=== PATIENT | female | born 1980 | race Caucasian/White ===

== ENCOUNTER 2019-05-05 14:34 | Emergency (ER) | payer OTHER, SELFPAY ==
[2019-05-05 14:41] VITALS: BP 150/83; PULSE 120; RESP 20; TEMP 37.2; O2SAT 100
--- NOTE | 2019-05-05 14:54 | ED.URI ---
HPI - URI/Sore Throat General Chief Complaint: Upper Respiratory Infection Stated Complaint: cough/fever Time Seen by Provider: 05/05/19 14:54 Source: patient and RN notes reviewed History of Present Illness HPI Narrative: Patient is a 38-year-old female that presents the urgent care with complaints of cough and fever. Patient states that her fever started yesterday and this is since subsided after 1 dose of Tylenol. Patient states the cough has been clear and productive for the last 2 days. Patient is used Tylenol and Airborne [id number]. No other acute complaints. No acute distress noted. Patient aware of the plan of care. Related Data Allergies Allergy/AdvReac Type Severity Reaction Status Date / Time No Known Allergies Allergy Verified 05/05/19 14:49 Review of Systems Review of Systems: Narrative: CONSTITUTIONAL: Reports a fever EYES: Denies visual changes, redness, or discharge. ENT: Denies rhinorrhea, congestion, sore throat, or otalgia. CARDIOVASCULAR: Denies chest pain, palpitations, or edema. RESPIRATORY: Reports of a clear productive cough with out dyspnea GASTROINTESTINAL: Denies abdominal pain, nausea, vomiting, or diarrhea. GENITOURINARY: Denies dysuria or hematuria. SKIN: Denies rash or itching. MUSCULOSKELETAL: Denies back pain, joint pain, or myalgia. NEUROLOGIC: Denies headache, numbness, or weakness. PMFSH Comments At the time of my signature, I reviewed and agree with the nursing past medical, surgical, social, and family history. There is no relevant family history pertinent to the patient complaint. Exam Narrative: Exam Narrative: GENERAL: This is a well-nourished, well-developed patient, in no apparent distress. HEAD: normocephalic, atraumatic. EYES: PERRL. Sclera clear/white. Vision is grossly intact. EARS: External ears normal, auditory canals clear and without drainage, TMs normal without perforation. Hearing grossly intact. NOSE: External nose normal with no obvious nasal discharge, nares without redness, no rhinorrhea. THROAT: Mucous membranes moist, posterior pharynx clear. NECK: Neck supple, non-tender without lymphadenopathy, masses or thyromegaly. CARDIOVASCULAR: Tachycardic without murmurs, gallops, or rubs. RESPIRATORY: Clear to auscultation. Breath sounds equal bilaterally. No wheezes, rales, or rhonchi. SKIN: warm, intact with no suspicious lesions or rash, good texture and turgor. NEURO: awake, alert, and oriented to person, place and time. There were no obvious focal neurologic abnormalities. EXTREMITIES: No clubbing, cyanosis, or edema. Course Vital Signs Vital signs: Vital Signs Temperature 99 F 05/05/19 14:41 Pulse Rate 120 H 05/05/19 14:41 Respiratory Rate 05/05/19 14:41 Blood Pressure 150/83 H 05/05/19 14:41 Pulse Oximetry 100 05/05/19 14:41 Temperature 99 F 05/05/19 14:41 Pulse Rate 120 H 05/05/19 14:41 Respiratory Rate 05/05/19 14:41 Blood Pressure 150/83 H 05/05/19 14:41 Pulse Oximetry 100 05/05/19 14:41 Reviewed?patient is informed that they may have pre-hypertension or hypertension based on a blood pressure reading in the department. I recommend the patient call the primary care provider listed on their discharge instructions or a physician of their choice this week to arrange follow-up for further evaluation of possible pre-hypertension or hypertension. MDM - URI/Sore Throat MDM Narrative Medical decision making narrative: Advised patient to use [id number] medication for symptom relief such as Claritin and Flonase. Use Tessalon Perles as needed for cough. If you develop any increase in symptoms associated with persistent high fevers, shortness of breath, wheezing, chest pain?go to the emergency room. Follow-up with PCP within 2 to 5 days or for worsening symptoms or failure to improve. Differential Diagnosis Differential diagnosis: Likely upper respiratory infection, otitis media, sinusitis, viral infection, bronchitis,
== END 2019-05-05 15:04 | disposition home or self-care (01) ==
PROVIDERS: Emergency Provider Nurse Practitioner Family; PCP Emergency Medicine
DX: R05 Cough (principal)
CPT/HCPCS: 99213; G0463

== ENCOUNTER 2020-04-26 09:45 | Emergency (ER) | payer OTHER, SELFPAY ==
--- NOTE | 2020-04-26 09:48 | ED.EYEPROB ---
HPI - Eye Problem General Chief complaint: Eye Problems Stated complaint: eye irritation Time Seen by Provider: 04/26/20 09:48 Source: patient and RN notes reviewed Mode of arrival: ambulatory Limitations: no limitations History of Present Illness HPI Narrative: 39-year-old female presents to [facility] with bilateral eyelid swelling after having eyelashes placed yesterday. Patient reports that she had a similar episode last time and was able to to a teleconference with [facility] and was placed on steriods. Patient states this time the lower lid is involved and the itching is worse. NO change in vision or blurry vision. No trauma to the eye. No pain to the eye. No redness. Related Data Allergies Allergy/AdvReac Type Severity Reaction Status Date / Time No Known Allergies Allergy Verified 05/05/19 14:49 Review of Systems Review of Systems: Narrative: CONSTITUTIONAL: Denies fever, chills, or sweats. EYES: Denies visual changes, redness, or discharge. Upper and lower bilateral lid swelling ENT: Denies rhinorrhea, congestion, sore throat, or otalgia. CARDIOVASCULAR: Denies chest pain, palpitations, or edema. RESPIRATORY: Denies cough or dyspnea. GASTROINTESTINAL: Denies abdominal pain, nausea, vomiting, or diarrhea. SKIN: Denies rash or itching. MUSCULOSKELETAL: Denies back pain, joint pain, or myalgia. NEUROLOGIC: Denies headache, numbness, or weakness. PSYCHIATRIC: Denies anxiety or depression. All other systems reviewed are negative, except as documented in HPI. PMFSH Comments Patient denies any past medical, surgical or social history. At the time of my signature, I reviewed and agree with the nursing past medical, surgical, social, and family history. There is no relevant family history pertinent to the patient complaint. Exam Narrative: Exam Narrative: GENERAL: This is a well-nourished, well-developed patient, in no apparent distress. HEAD: normocephalic, atraumatic. EYES: PERRL. Sclera clear/white. Vision is grossly intact. Upper and lower lids along with conjunctive a swollen without increased redness. No signs of infection. Fake lashes in place EARS: External ears normal, auditory canals clear and without drainage, TMs normal without perforation. Hearing grossly intact. NOSE: External nose normal with no obvious nasal discharge, nares without redness, no rhinorrhea. THROAT: Mucous membranes moist, posterior pharynx clear. NECK: Neck supple, non-tender without lymphadenopathy, masses or thyromegaly. CARDIOVASCULAR: Regular rate and rhythm without murmurs, gallops, or rubs. RESPIRATORY: Clear to auscultation. Breath sounds equal bilaterally. No wheezes, rales, or rhonchi. GASTROINTESTINAL: Abdomen soft, non-tender, nondistended. SKIN: warm, intact with no suspicious lesions or rash, good texture and turgor. NEURO: awake, alert, and oriented to person, place and time. There were no obvious focal neurologic abnormalities. EXTREMITIES: No clubbing, cyanosis, or edema. No joint tenderness, effusion, or edema noted. Course Vital Signs Vital signs: Vital Signs Temperature 97.5 F L 04/26/20 09:55 Pulse Rate 108 H 04/26/20 09:55 Respiratory Rate 16 04/26/20 09:55 Blood Pressure 145/88 H 04/26/20 09:55 Pulse Oximetry 100 04/26/20 09:55 Temperature 97.5 F L 04/26/20 09:55 Pulse Rate 108 H 04/26/20 09:55 Respiratory Rate 16 04/26/20 09:55 Blood Pressure 145/88 H 04/26/20 09:55 Pulse Oximetry 100 04/26/20 09:55 Reviewed. Discussed with patient importance of following up with primary care provider for evaluation of mildly elevated blood pressure. MDM - Eye Problem Differential Diagnosis Differential diagnosis: Likely corneal abrasion, conjunctivitis, acute iritis and other (Contact dermatitis, allergic reaction) Critical Care Time Critical Care Time Critical Care Time: No Discharge Plan Discharge Clinical Impression: Contact dermatitis Qualifiers: Contact dermatitis type: allergic
[2020-04-26 09:55] VITALS: BP 145/88; PULSE 108; RESP 16; TEMP 36.4; O2SAT 100
--- NOTE | 2020-04-26 10:23 | PC.NURSE ---
B/P and pulse checked at discharge. 118/87 and 88. Will watch B/P and follow with pmd.
== END 2020-04-26 10:23 | disposition home or self-care (01) ==
PROVIDERS: Emergency Provider Nurse Practitioner; PCP Emergency Medicine
DX: L23.2 Allergic contact dermatitis due to cosmetics (principal)
CPT/HCPCS: 99213; G0463

== ENCOUNTER 2020-06-21 12:16 | Emergency (ER) | payer OTHER, SELFPAY ==
[2020-06-21 12:25] VITALS: BP 132/75; PULSE 98; RESP 20; TEMP 36.8; O2SAT 100
--- NOTE | 2020-06-21 13:14 | ED.UPPEXIN ---
HPI - Extremity Injury (Upper) General Chief Complaint: Extremity Injury, Upper Stated Complaint: bilateral arm pain Time Seen by Provider: 06/21/20 13:03 Source: patient and RN notes reviewed Mode of arrival: ambulatory Limitations: no limitations History of Present Illness HPI narrative: Patient presents today complaining of right elbow pain x2 months after she was lifting heavy dumbbells at the gym. She reports left elbow pain x1 month after she was overcompensating with the left arm while shoveling snow. States that she must use 2 hands to do things with her right arm such as lifting the gas pump. Currently rates her pain 5/10 and describes the pain as aching. She has been taking ibuprofen occasionally with minimal relief. Pain significantly increases with extension of either arm Related Data Allergies Allergy/AdvReac Type Severity Reaction Status Date / Time No Known Allergies Allergy Verified 05/05/19 14:49 Review of Systems Review of Systems: Narrative: CONSTITUTIONAL: Denies body aches, fever, chills, or sweats. EYES: Denies visual changes, redness, or discharge. ENT: Denies rhinorrhea, congestion, sore throat, or otalgia. CARDIOVASCULAR: Denies chest pain, palpitations, or edema. RESPIRATORY: Denies cough or dyspnea. GASTROINTESTINAL: Denies abdominal pain, nausea, vomiting, or diarrhea. GENITOURINARY: Denies dysuria or hematuria. SKIN: Denies rash, itching, or wounds. MUSCULOSKELETAL: Denies back pain, or myalgia. + Bilateral elbow and forearm pain NEUROLOGIC: Denies headache, numbness, tingling, or weakness. PSYCH: Denies depression or anxiety. [facility] Social History Social History Smoking status: Current every day smoker Comments At time of signature, I have reviewed and agree with nursing past medical, surgical, social and family history unless otherwise noted. Please see nursing chart for further information. There is no relevant family history pertinent to the presenting complaint Exam Narrative: Exam Narrative: GENERAL: Well-appearing, well-nourished, and in no acute distress. HEAD: Normocephalic, atraumatic. EYES: EOMI. No redness or drainage. Conjunctivae normal. ENT: Mucous membranes pink and moist. NECK: Normal AROM. CHEST: No respiratory distress. EXTREMITIES: Right arm: General tenderness to antecubital fossa. Muscular tenderness of the forearm. No tenderness to the wrist or hand. No tenderness to the lateral or medial epicondyles or the olecranon process tenderness with extension of the elbow as well as some mild tenderness with pronation and supination. No edema, erythema, ecchymosis. Distal sensation intact. Capillary refill normal. Radial pulse normal. Left arm:General tenderness to antecubital fossa, but to a lesser degree than the right arm. Muscular tenderness of the forearm. No tenderness to the wrist or hand. No tenderness to the lateral or medial epicondyles or the olecranon process tenderness with extension of the elbow as well as some mild tenderness with pronation and supination. No edema, erythema, ecchymosis. Distal sensation intact. Capillary refill normal. Radial pulse normal. SKIN: Warm, dry, no rash. Capillary refill normal. Normal skin turgor. NEURO: No focal deficits. Alert and oriented x3. Gait steady. PSYCH: Normal affect. No signs of depression or anxiety. Course Vital Signs Vital signs: Vital Signs Temperature 98.2 F 06/21/20 12:25 Pulse Rate 98 06/21/20 12:25 Respiratory Rate 20 06/21/20 12:25 Blood Pressure 132/75 06/21/20 12:25 Pulse Oximetry 100 06/21/20 12:25 Temperature 98.2 F 06/21/20 12:25 Pulse Rate 98 06/21/20 12:25 Respiratory Rate 20 06/21/20 12:25 Blood Pressure 132/75 06/21/20 12:25 Pulse Oximetry 100 06/21/20 12:25 Reviewed. Pt has been instructed to follow up with her PCP regarding her elevated blood pressure today. MDM - Extremity Inj
== END 2020-06-21 13:24 | disposition home or self-care (01) ==
PROVIDERS: Emergency Provider Nurse Practitioner; PCP Emergency Medicine
DX: M77.8 Other enthesopathies, not elsewhere classified (principal); F17.200 Nicotine dependence, unspecified, uncomplicated
CPT/HCPCS: 99213; G0463